=== PATIENT | female | born 1980 | race Caucasian/White ===

== ENCOUNTER → 2023-12-25 | Outpatient (CLI) | payer BC ==
--- NOTE | 2023-12-26 09:29 | MM ---
Reason for Exam: Screening (asymptomatic). Last screening mammogram was performed 12 month(s) ago. Patient History: Menarche at age 15. Patient has no children. Premenopausal. Patient used Hormonal Contraceptives for 10 years. Paternal grandmother had breast cancer, age 55. Maternal grandmother had ovarian cancer, age 50. Maternal aunt had ovarian cancer, age 50. Last menstrual period: 12/14/2023 Risk Values: Estrella 5 year model risk: 0.7%. NCI Lifetime model risk: 11.0%. Prior Study Comparison: 12/20/2022 Bilateral MG 3D screening mammo w/cad, [facility]. Tissue Density: The breasts are heterogeneously dense, which may obscure small masses. Findings: Analyzed By CAD. There is no suspicious group of microcalcifications or new suspicious mass in either breast. Overall Assessment: Negative, BI-RAD 1 Management: Screening Mammogram of both breasts in 1 year. . Patient should continue monthly self-breast exams. A clinical breast exam by your physician is recommended on an annual basis. This exam should not preclude additional follow-up of suspicious palpable abnormalities. Note on Estrella scores and lifetime risk: 1. A Estrella score greater than 3% is considered moderate risk. If this is the case, consider specialist referral to assess eligibility for a risk reducing agent. 2. If overall lifetime risk for the development of breast cancer is 20% or higher, the patient may qualify for future screening with alternating mammogram and breast MRI. [facility], , 12/26/2023 9:27 AM. Electronically signed and approved by: Kamar Oglesby M.D. Radiologis
== END | disposition home or self-care (01) ==
LOC: RADMAMWWP 15:51
PROVIDERS: ATTEND Obstetrics & Gynecology
CPT/HCPCS: 77063; 77067